=== PATIENT | female | born 1960 | race Caucasian/White ===

== ENCOUNTER 2021-07-18 15:08 | Emergency (ER) | payer OTHER ==
[~2021-07-18] VITALS: Ht 162 cm; Wt 48.0 kg
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
[2021-07-18] MEDS ORDERED: CYCL10TA25 PO (17:20)
[2021-07-18 17:30] VITALS: BP 154/77
[2021-07-18] MEDS ORDERED: ACETAMINOPHEN 500 MG TAB (TYLENOL) PO ONE (17:30)
== END 2021-07-18 17:30 | disposition home or self-care (01) ==
LOC: EDUNIT# 15:08 → ER 15:09
DX: S46.911A Strain of unspecified muscle, fascia and tendon at shoulder and upper arm level, right arm, initial encounter (principal); M25.562 Pain in left knee; F17.210 Nicotine dependence, cigarettes, uncomplicated; V87.7XXA Person injured in collision between other specified motor vehicles (traffic), initial encounter
CPT/HCPCS: 70450; 71045; 72125; 73030; 73562; 99283